=== PATIENT | female | born 1955 | race Caucasian/White ===

== ENCOUNTER 2025-06-08 12:06 | Emergency (ER) | payer OTHER, MEDICARE, SELFPAY ==
[2025-06-08 12:14] VITALS: BP 153/84
[2025-06-08 13:46] VITALS: BMI 37.2
--- NOTE | 2025-06-08 13:47 | ED.GENMED ---
History of Present Illness
General
Chief Complaint: Breathing Problem
Time Seen by Provider: 06/08/25 13:09
History of Present Illness
History of Present Illness:
Michelle is a 70-year-old female with past medical history of sleep apnea, GERD, angina who presents this afternoon after an episode of chest pain earlier this morning between midnight and 6 AM that was relieved with nitroglycerin. Reports some
shortness of breath during the episode. Has had a previous episode similar to this for which she was prescribed a nitroglycerin. Presents to the ER this morning after googling her symptoms. Chest pain shortness of breath is resolved however she
is endorsing heartburn consistent with GERD episodes.
Phy Exam
General Physical Exam
General Presentation: well appearing and no apparent distress
General Skin: warm and dry
General Habitus: normal
General Mental: alert
General Hydration: appears well hydrated
ENT Exam
ENT Exam: EOMI, pharynx normal, neck supple and normocephalic
Eye Exam
Eye Exam: PERRL, cornea clear and conjunctiva normal
Cardiovascular Exam
Cardiovascular Exam: regular rate/rhythm, no edema, no murmur and normal peripheral pulses
Pulmonary Exam
Pulmonary Exam: lungs clear, no respiratory distress, no rales, no crackles, no rhonchi, no stridor, no wheezing and no cough
Gastrointestinal Exam
Gastrointestinal Exam: normal bowel sounds, non tender, soft, no organomegaly, no pulsatile mass and non distended
Neurological Exam
Neurological Exam: alert, oriented x3, no motor deficits and speech normal
Musculoskeletal Exam
Musculoskeletal Exam: full ROM and no edema
Skin Exam
Skin Exam: normal color, warm/dry, no rash and no petechia
Psychiatric Exam
Psychiatric Exam: normal mood/affect
Scores
Heart Failure Risk
Heart Failure Risk Score: Not Applicable
Course
Orders/Labs/Results
Orders:
Orders
06/08/25 12:07
Electrocardiogram (*1) Urgent
Reason for Study: Shortness of Breath
EKG- Treatment ONCE
06/08/25 13:22
Mag Hydrox/Al Hydrox/Simeth [Maalox] 30 ml Phenobarb/Hyoscy/Atropine/Scop [] 10 ml Viscous Lidocaine 2% [Xylocaine Viscous Cup] 10 ml PO NOW
06/08/25 13:31
Basic Metabolic Panel Urgent
Complete Blood Count/With Diff Routine
Troponin I Urgent
06/08/25 13:50
Mag Hydrox/Al Hydrox/Simeth [Maalox] 30 ml .ROUTE .STK-MED ONE
Phenobarb/Hyoscy/Atropine/Scop [] 10 ml .ROUTE .STK-MED ONE
Viscous Lidocaine 2% [Xylocaine Viscous Cup] 15 ml .ROUTE .STK-MED ONE
Abnormal Lab Results
06/08/25
13:31
RBC 4.09 L 10^6/uL
(4.20-5.40)
Absolute Monos (auto) 0.8 H 10^3/uL
(0.1-0.6)
Monocytes % 10.7 H %
(1.7-9.3)
06/08/25 13:31
06/08/25 13:31
Vital Signs
Initial and Last Documented VS:
Initial Vital Signs
Temp Pulse Resp BP Pulse Ox
36.4 C 78 18 153/84 98
06/08/25 12:14 06/08/25 12:14 06/08/25 12:14 06/08/25 12:14 06/08/25 12:14
Last Documented Vital Signs
Temp Pulse Resp BP Pulse Ox
37.0 C 63 20 134/70 97
06/08/25 14:00 06/08/25 14:00 06/08/25 14:00 06/08/25 14:00 06/08/25 14:00
MDM/Problems Addressed
Differential Diagnosis Includes:
Differential includes GERD, ACS, unspecified chest pain
Patient given GI cocktail in ER with improvement in pain. No return of chest pain or shortness of breath. EKG normal sinus rhythm and unchanged from prior. Lab work unremarkable, troponin 0. Given the chest pain. Approximately 12 hours prior to
arrival and has not reoccurred since repeat troponin not indicated. Patient will follow-up with cardiology and GI. Return to ER precautions discussed
*Pulse Oximetry
SaO2: 97
Oxygen Mode of Delivery: Room air
Patient hypoxic: no
*Critical Care Note
Total Time (30-74mins, 75-104mins- exclusive of procedures): Not Applicable
ED Attending Note
-
Portions of this chart may have been created with voice recognition software.� Occasional wrong word or��sound alike� substitutions may have occurred due to the inherent limitations of voice recognition software.
Discharge Plan
Departure
Patient Disposition: Home (Routine Discharge)
Date of Disposition: 06/08/25
Time of Disposition: 14:49
Patient with high blood pressure during this ER visit?: No
Discharge Problem:
Chest pain due to GERD
Instructions: Chest Pain (DC), Chest Pain DCA Follow Up
Referrals:
Hamlet Staley MD [Active, Gastroenterology]
Tracy Kim DO [Active, Cardiology]
Activity Restrictions/Additional Instructions:
Please schedule a follow-up appointment with cardiology and gastroenterology regarding this ER visit. If you do not hear from cardiology within 24 hours please call the number listed above. Given your history of GERD and resolution of your
symptoms with medication here in the ER supportive continue your home omeprazole. Tums as needed
Interventions
Interventions:
*Risk Screen - Suicide Last Done: 06/08/25 12:06
*General Assessment Last Done: 06/08/25 12:14
*Neglect/Abuse Screening Last Done: 06/08/25 12:14
*ED COVID-19 Vaccine History Last Done: 06/08/25 14:00
*ED Influenza Vaccine History Last Done: 06/08/25 14:00
[facility] Fall Risk Assessment Tool Last Done: 06/08/25 12:06
ED- Cardiac Assessment Last Done: 06/08/25 14:00
ED- Pulmonary Assessment Last Done: 06/08/25 14:00
Discharge Date and Time
Print Language: ESTONIAN
[2025-06-08] MEDS: MAALOX 50 PO (13:55)
[2025-06-08 13:57] LABS: Hematocrit 37.3 % (37.0-47.0); Hemoglobin 12.5 g/dL (12.0-16.0); Mean Corp Hgb Conc. 33.5 g/dL (33.0-37.0); Mean Corpuscular Volume 91.2 fL (81.0-99.0); Nucleated Red Blood Cells % 0 %; Platelet Count 260 10^3/uL (130-400); Red Cell Dist. Width 13.5 % (11.5-14.5)
[2025-06-08 14:00] VITALS: BP 134/70
[2025-06-08 14:14] LABS: Blood Urea Nitrogen 14 mg/dl (7-17); Calcium 9.4 mg/dl (8.4-10.2); Carbon Dioxide 27 mmol/L (22-30); Chloride 105 mmol/L (98-107); Estimated Creatinine Clearance 84 ml/min; Glucose 89 mg/dl (70-99); Sodium 137 mmol/L (135-145); eGFR > 60.00
[2025-06-08 14:23] LABS: Troponin I < 0.012 ng/ml
[2025-06-08 15:00] VITALS: BP 135/68
== END 2025-06-08 15:19 | disposition home or self-care (01) ==
LOC: EMR 12:06
PROVIDERS: Emergency Medicine; EMERGENCY PHYSICIAN Emergency Medicine; FAMILY PHYSICIAN Family Medicine
DX: R07.89 Other chest pain (principal); K21.9 Gastro-esophageal reflux disease without esophagitis; G47.30 Sleep apnea, unspecified
CPT/HCPCS: 99284; 80048; 84484; 85025; 93005